=== PATIENT | female | born 1975 | race Caucasian/White ===

== ENCOUNTER 2017-09-28 21:43 | Emergency (ER) | payer BC ==
[2017-09-28 23:15] LABS: URINE BLOOD (Dip) POC 3+ (NEGATIVE); URINE GLUCOSE (Dip) POC Negative (NEGATIVE); URINE KETONES (Dip) POC Negative (NEGATIVE); URINE LEUKOCYTE EST (Dip) POC 3+ (NEGATIVE); URINE NITRITE (Dip) POC Negative (NEGATIVE); URINE TOTAL PROTEIN POC Trace (NEGATIVE)
[2017-09-28] MEDS: CEFTRIAXONE 1 GM/50 ML (PMX) 50 ML IVPB (23:18)
== END 2017-09-29 00:23 | disposition home or self-care (01) ==
LOC: FTE 09-29 00:23
DX: N39.0 Urinary tract infection, site not specified (principal)
CPT/HCPCS: 81003; 96374; 99284-25